=== PATIENT | female | born 1970 | race Caucasian/White ===

== ENCOUNTER → 2018-06-26 | Outpatient (CLI) | payer OTHER ==
[~2018-06-26] MED LIST: CIMZIA400 MG/2 M INJ; IBUPROFEN400 MG PO; MULTIVITAMINS1 EAC7 PO; TYLENOL PO; ZIPSOR25 MG PO
--- NOTE | 2018-06-26 09:13 | Diagnostic Imaging Report ---
EXAM: US ABDOMEN COMPLETE INDICATION: Elevated LFTs. COMPARISON: None TECHNIQUE: Transverse and longitudinal cox scale and color doppler sonographic images of the abdomen were obtained. FINDINGS: LIVER 15.4 cm in the right midclavicular line. Increased echogenicity of the liver with normal contour, no masses. SPLEEN 10.1 cm in maximum diameter. Normal echogenicity, no masses. GALLBLADDER No gallbladder wall thickening, distension, stone, or pericholecystic fluid. Negative reported sonographic Vazquez's sign. BILE DUCTS No intra nor extra-hepatic biliary dilation. Common bile duct measures 0.4 cm PANCREAS: Visualized portions are normal. RIGHT KIDNEY: 10.8 cm Echogenicity: Normal Collecting System: No hydronephrosis Stones: None Cyst/Mass: None LEFT KIDNEY: 9.9 cm Echogenicity: Normal Collecting System: No hydronephrosis Stones: None Cyst/Mass: None VESSELS: Aorta: Visualized portions are within normal size limits Inferior Vena Cava: Visualized portions are normal Main Portal Vein: 0.7 cm, normal size with hepatopetal flow. FREE FLUID: None IMPRESSION: Hepatic steatosis. Liver size measures at the upper limits of normal. Signed by: Dr. Yonathan Reyes MD on 06/26/2018 9:10 AM
== END ==
LOC: US 07:47
PROVIDERS: ATTEND Internal Medicine Gastroenterology
DX: R74.8 Abnormal levels of other serum enzymes (principal); R14.0 Abdominal distension (gaseous); K30 Functional dyspepsia
CPT/HCPCS: 76700

== ENCOUNTER → 2018-06-27 | Day surgery (SDC) | payer OTHER ==
[~2018-06-27] MED LIST changes: +FENTANYL CITRATE/PF 100MCG/2 ML INJ ONE; +LIDOCAINE HCL 2% LOCAL INJ 5 ML SDV VIAL INJ ONE; +MIDAZOLAM HCL 2 MG/2 ML VIAL ONE; +PROPOFOL IV EMULSION 10 MG/ML 50 ML VIAL ONE
--- OUTSIDE RECORDS SUMMARY | 2018-06-27 10:02 | XMS REPORT ---
[facility] Address Unknown Phone Unavailable Care Team Providers Care Tractor Operator Battery Name Role Phone KIM WHITE Unavailable Unavailable Problems This patient has no known problems. Allergies, Adverse Reactions, Alerts This patient has no known allergies or adverse reactions. Medications This patient has no known medications. Results Test Description Test Time Test Comments Text Results Atomic Results Result Comments US ABDOMEN COMPLETE 2018-06-26 09:07:00 [place] [address] Patient Name: PRO HAMMOND MR #: [id number] : 1970 Age/Sex: 47/F Req #: [id number] Adm Physician: Ordered by: KIM WHITE MD Report #: [id number] Location: US Room/Bed: Procedure: [id number] US/US ABDOMEN COMPLETE Exam Date: 06/26/18 Exam Time: 0815 REPORT STATUS: Signed EXAM: US ABDOMEN COMPLETE INDICATION: Elevated LFTs. COMPARISON: None TECHNIQUE: Transverse and longitudinal cox scale and color doppler sonographic images of the abdomen were obtained. FINDINGS: LIVER 15.4 cm in the right midclavicular line. Increased echogenicity of the liver with normal contour, no masses. SPLEEN 10.1 cm in maximum diameter. Normal echogenicity, no masses. GALLBLADDER No gallbladder wall thickening, distension, stone, or pericholecystic fluid. Negative reported sonographic Vazquez's sign. BILE DUCTS No intra nor extra-hepatic biliary dilation. Common bile duct measures 0.4 cm PANCREAS: Visualized portions are normal. RIGHT KIDNEY: 10.8 cm Echogenicity: Normal Collecting System: No hydronephrosis Stones: None Cyst/Mass: None LEFT KIDNEY: 9.9 cm Echogenicity: Normal Collecting System: No hydronephrosis Stones: None Cyst/Mass: None VESSELS: Aorta: Visualized portions are within normal size limits Inferior Vena Cava: Visualized portions are normal Main Portal Vein: 0.7 cm, normal size with hepatopetal flow. FREE FLUID: None IMPRESSION: Hepatic steatosis. Liver size measures at the upper limits of normal. Signed by: Dr. Judy Simpson MD on 06/26/2018 9:10 AM Dictated By: JUDY SIMPSON MD 9 Transcribed By: SALLIE on 06/26/18909 COPY TO: KIM WHITE MD
[2018-06-27 14:30] VITALS: BP 128/88
--- NOTE | 2018-06-27 15:55 | Operative Report ---
DATE OF PROCEDURE: 06/27/2018 SURGEON: Jesse Zamarripa MD PROCEDURE: Esophagogastroduodenoscopy with biopsies. ADDITIONAL REFERRING PHYSICIAN: Manda Powell MD INDICATIONS FOR EGD: Heartburn, bloating, history of elevated liver enzymes. MEDICATIONS: The patient was done under MAC, please see anesthesiologist's note. PROCEDURE IN DETAIL: With the patient in left lateral decubitus position, a flexible fiberoptic Olympus gastroscope was introduced into the esophagus under direct visualization without any difficulty. There was some patchy erythema noted in the distal esophagus. The scope was then advanced with ease into the stomach. Mucosa overlying the antrum and the body revealed some patchy erythema and [id number] edema. Biopsies were obtained and sent to stain for H pylori. The pylorus was of normal contour and shape, it was intubated with ease and the scope was advanced all the way to the second portion of the duodenum. Biopsies were obtained from the proximal second portion to rule out sprue. There was a cluster of nodules noted in the proximal second portion and biopsies were obtained. Also, biopsies were obtained from the duodenal bulb. The scope was then withdrawn back into the stomach and retroflexed, mucosa overlying the fundus and cardia appeared to be within normal limits. The scope was then straightened out. The stomach was decompressed. The scope was subsequently withdrawn. The patient tolerated the procedure well. IMPRESSION: 1. Distal esophagitis, mild. 2. Gastritis, biopsied. Biopsies sent to stain for Helicobacter pylori. 3. Cluster of minute nodules, proximal second portion, biopsied. PLAN: Follow up histology. Initiate Protonix 40 mg one p.o. q.a.m. a.c. Await results of acute hepatic panel and ultrasound of liver. Jesse Zamarripa MD [facility] [place][id number] cc: Denita Powell MD
== END | disposition home or self-care (01) ==
LOC: OR 10:00
PROVIDERS: ATTEND Internal Medicine Gastroenterology
DX: K29.70 Gastritis, unspecified, without bleeding (principal); K20.9 Esophagitis, unspecified; K21.9 Gastro-esophageal reflux disease without esophagitis; K31.89 Other diseases of stomach and duodenum; G47.33 Obstructive sleep apnea (adult) (pediatric); R74.8 Abnormal levels of other serum enzymes; E66.01 Morbid (severe) obesity due to excess calories; L40.9 Psoriasis, unspecified; F41.9 Anxiety disorder, unspecified; Z88.2 Allergy status to sulfonamides; Z68.39 Body mass index [BMI] 39.0-39.9, adult
CPT/HCPCS: 43239; J2001; J2250; J2704